=== PATIENT | male | born 1965 | race Caucasian/White ===

== ENCOUNTER 2020-06-04 14:58 | Outpatient (RCR) | payer OTHER, SELFPAY ==
--- NOTE | 2020-06-04 16:48 | PTOPEVAL ---
Thank you for referring Martín Jama to [facility].? The patient is scheduled to be seen for therapy? __3__x/week for 12 visits. Please review, sign, date and return this plan of care ANGELA. I agree with and certify that the following plan of care is medically necessary. Referring Physician Date Admitting Provider: Attending Provider: PHYSICIAN NOT ON STAFF Referring Provider: *PT Outpatient Evaluation Start: 06/04/20 15:07 Freq: Status: Active Protocol: Document 06/04/20 15:08 SUZANNE (Rec: 06/04/20 15:58 SUZANNE [email or web address]) Therapy Assessment Status Assessment Status Assessment Status Evaluation Evaluation Information Problem Diagnosis s/p right tka Onset 05/06/20 Subjective Information Pt. underwent right TKA on 05/06 Query Text:As Reported By Patient/ . He states that he was Family participating in home health, but discharged last week. He reports that pain is consistent 3-/10. He reports that he does wake on occassion due to pain in the right knee. He states that he longer taking pain medication daily, but did take one before treatment. He reports that he is not currently driving. He states that he returns to the doctor in about 2 weeks. He reports that his goal is to return to normal walking. Prior Level of Function Activity Level (Last 3 Months) Occupation retired Hand Dominance Right Activity of Daily Living Ability Independent Indoor/Home Mobility Independent Community Mobility Independent Stairs Ability Independent Functional Cognition (Planning, Shopping Independent , Taking Medications) Cooking Yes Cleaning Yes Laundry Yes Shopping Yes Driving Yes Pain Assessment Pain Scale Pain Scale Used Numeric (1 - 10) Self Report Pain Assessment Right Knee(s) Reported Pain Level 4 Pain Score Pain Score 4: Self Report Lower Extremity Range of Motion General Lower Extremity Range of Motion Gross Lower Extremity Range of Motion 5-110 degrees right knee AROM Comments 0-135 degrees left knee AROM Extremity Circumference Assessment Circumference Assessment Location
--- NOTE | 2020-07-09 11:10 | PTOPEVAL ---
Thank you for referring Martín Jama to [facility]. Please review, sign, date and return this plan of care ANGELA. I agree with and certify that the following plan of care is medically necessary. Referring Physician Date Admitting Provider: Attending Provider: PHYSICIAN NOT ON STAFF Referring Provider: *PT Outpatient Evaluation Start: 06/04/20 15:07 Freq: Status: Active Protocol: Document 07/09/20 10:37 SUZANNE (Rec: 07/09/20 11:09 SUZANNE [email or web address]) Therapy Assessment Status Assessment Status Assessment Status Discharge Evaluation Information Problem Diagnosis s/p right tka Subjective Information Pt. reports that he has Query Text:As Reported By Patient/ returned to driving. He is Family navigating steps and has the most trouble with going down steps. Pain Assessment Pain Scale Pain Scale Used Numeric (1 - 10) Self Report Pain Assessment Right Knee(s) Reported Pain Level 4 Pain Score Pain Score 4: Self Report Interventions Used Interventions Used By Clinicians Activity or ADL's,Exercise Lower Extremity Range of Motion General Lower Extremity Range of Motion Gross Lower Extremity Range of Motion -right knee AROM 3-120 degrees Comments continue to note capsular end feel in knee extension. Lower Extremity Muscle Strength Testing General Lower Extremity Strength Gross Lower Extremity Strength -bilateral hip flexion 5/5 -bilateral knee extension 5/5 -bilateral knee flexion 5/5 -bilateral ankle dorsiflexion 5/5 Edema Assessment Location Right Lateral Knee(s) Edema Comments Pt. presents with small pocket of fluid on the right knee with flexion Gait Assessment Gait Assessment Additional Ambulation Comments Pt. ambulates with equal right and left stance time with noted heel strike on the right . Stair Climbing Assessment Stair Climbing Assessment Stair Climbing Comments Pt. ambulates with reciprical pattern up two flights of stairs with slight difficulty with eccentric quad loading while descending. General Exercise General Exercises Exercise Description -AAROM knee flexion x 10 Query Text:Record Sets, Reps, minutes Resistance, and Position -prone hand x 10 minutes -reviewed pt. HEP and viewed
== END 2020-07-09 13:36 | disposition home or self-care (01) ==
LOC: CHSPT 14:58
PROVIDERS: PCP Internal Medicine
DX: Z96.651 Presence of right artificial knee joint (principal)
CPT/HCPCS: 97014; 97016; 97110; 97161; 97530; G0283

== ENCOUNTER 2020-12-22 07:44 | Outpatient (RCR) | payer OTHER, SELFPAY ==
--- NOTE | 2020-12-22 08:09 | PTOPEVAL ---
Thank you for referring Martín Jama . to [facility].? The patient is scheduled to be seen for therapy? __3__x/week for 12 visits. Please review, sign, date and return this plan of care ANGELA. I agree with and certify that the following plan of care is medically necessary. Referring Physician Date Admitting Provider: Attending Provider: Kandi Gonzalez Referring Provider: *PT Outpatient Evaluation Start: 12/22/20 06:41 Freq: Status: Active Protocol: Document 12/22/20 06:41 SUZANNE (Rec: 12/22/20 07:59 SUZANNE [email or web address]) Therapy Assessment Status Assessment Status Assessment Status Evaluation Evaluation Information Problem Diagnosis right knee pain Onset 05/06/20 Subjective Information Pt. reports following Query Text:As Reported By Patient/ discharge from therapy he Family noted increasing pain on the outside of the right knee. He describes pain with attempting to lift his leg out of the car. He states that pain can begin at the described right buttock and go all the down the entire right leg. He reports that his current pain is localized to the knee joint. He reports that pain in the right knee is constant. He states that he will wake at night due to pain in the knee and right leg. He reports that his goal for therapy is to decrease his right knee pain. Diagnostic Tests X-Rays For This Problem Yes: no signficant finding according to the pt. Prior Level of Function Comments Additional Prior Level of Function He reports that he enjoys Comments yardwork, but has difficulty with cutting grass due to pain . He reports that he uses ice to help reduce pain. Pain Assessment Timing of Pain Assessment Timing of Pain Assessment Pre-Treatment Pain Scale Pain Scale Used Numeric (1 - 10) Self Report Pain Assessment Right Leg(s) Reported Pain Level 4 Pain Description Aching,Throbbing Lowest Pain Intensity 3 Greatest Pain Intensity 8 Pain Aggravating Factors Exercise/Activity,Stair Climbing,Walking,Weight Bearing/Standi
== END 2021-01-15 11:22 | disposition home or self-care (01) ==
LOC: CHSPT 07:44
DX: Z96.651 Presence of right artificial knee joint (principal); M25.561 Pain in right knee
CPT/HCPCS: 97110; 97161; 97530

== ENCOUNTER 2021-09-03 15:21 | Outpatient (CLI) | payer MEDICARE, SELFPAY ==
[2021-09-03 16:47] LABS: Influenza A QL RT-PCR Negative (Negative); Influenza B QL RT-PCR Negative (Negative); SARS-CoV-2 RNA PCR Negative (Negative)
== END 2021-09-03 15:22 | disposition home or self-care (01) ==
LOC: CHSLAB 15:24
PROVIDERS: PCP Internal Medicine; Visit Provider Internal Medicine
DX: J06.9 Acute upper respiratory infection, unspecified (principal); R50.9 Fever, unspecified; Z20.822 Contact with and (suspected) exposure to COVID-19
CPT/HCPCS: 87081; 87502; 87880; C9803; U0003; U0005

== ENCOUNTER 2022-02-10 14:23 | Emergency (ER) | payer MEDICARE, OTHER, SELFPAY ==
--- NOTE | ~2022-02-10 | CT_ITS ---
EXAMINATION: CT lumbar spine wo con DATE: 02/10/2022 15:25 INDICATION: Left-sided low back pain TECHNIQUE: Computed tomography (CT) of the was performed without intravenous contrast. The dose-lengt h product was 1550.57 mGy-cm. COMPARISON: None FINDINGS: Normal lumbar lordosis. There is disc narrowing at L5-S1. Lung bases are unremarkable. Nono bstructing left nephrolithiasis. No acute fracture or traumatic malalignment. Mild osteoarthritis of the hips. IMPRESSION: 1. No acute abnormality of the lumbar spine. 2: Mild lumbar spondylosis. 3: Nonobstructing left nephrolithiasis Reviewed, dictated and finalized at location B.
[2022-02-10 14:30] VITALS: BP 144/99; PULSE 92; RESP 20; TEMP 36.6; O2SAT 97
--- NOTE | 2022-02-10 14:42 | ED.BACK ---
HPI - Back Pain/Injury General Chief Complaint: Back Pain/Injury Stated Complaint: extreme back pain Time Seen by Provider: 02/10/22 14:42 Source: patient Mode of arrival: ambulatory History of Present Illness HPI Narrative: 56-year-old male history chronic neck and pain status post epidural injection cervical region had MRI of the lumbar spine on 05/18/2021 which revealed multilevel lumbar degenerative disc. The patient was noted to multiple level diffuse disc bulging, moderate bilateral facet arthropathy, mild bilateral neuroforaminal stenosis and mild disc bulge spinal canal stenosis. the patient presents to the ER because of severe low back pain radiating to his left thigh. Pain started 2-3 days ago when he stepped off a low step. He does not have any motor or sensory deficits. No bladder or bowel involvement. He called the [facility] who advised him come to the nearest emergency room. MD elicited complaint: back pain Pertinent past history: prior back pain Onset (ago): day(s) ( Started 2 days ago) Timing: constant Severity: mild Similar Symptoms Previously: Yes Quality: aching Location: lumbar spine Radiation: right upper leg Exacerbating factors: movement Relieving factors: immobilization Context: while lifting, turning/twisting and bending Associated symptoms: denies other symptoms Work related injury: No Related Data Allergies Allergy/AdvReac Type Severity Reaction Status Date / Time No Known Allergies Allergy Unverified 02/10/22 14:50 Review of Systems Review of Systems: All systems reviewed & are unremarkable except as noted in HPI and below Constitutional: Constitutional: Reports as per HPI and Reports no additional constitutional complaints Eyes: Eyes: Reports as per HPI and Reports no additional eye complaints ENT: Reports system reviewed and no additional complaints, except as documented and Reports as per HPI Cardiovascular: Cardiovascular: Reports as per HPI and Reports no additional cardiovascular complaints Respiratory: Respiratory: Reports as per HPI and Reports no additional respiratory complaints Gastrointestinal: Gastrointestinal: Reports as per HPI and Reports no additional gastrointestinal complaints Genitourinary: Genitourinary: Reports no additional male genitourinary complaints and Reports as per HPI Musculoskeletal: Musculoskeletal: Reports no additional musculoskeletal complaints, Reports as per HPI and Reports back pain Integumentary/Breasts: Skin/Breast: Reports system reviewed and no additional complaints, except as docu and Reports as per HPI Neurologic: Reports system reviewed and no additional complaints, except as documented and Reports as per HPI Psychiatric: Psychiatric: Reports no additional psychiatric complaints and Reports as per HPI Endocrine: Endocrine: Reports no additional endocrine complaints and Reports as per HPI Hematologic/Lymphatic: Hematologic/Lymphatic: Reports no additional hematologic/lymphatic complaints and Reports as per HPI Allergic/Immunologic: Allergic/Immunologic: Reports no additional allergic/immunologic complaints and Reports as per HPI PMFSH Family History Family History Mother Hypertension Family history of elevated blood lipids Sibling Family history of diabetes mellitus in first degree relative Father Carcinoma of colon Social History Social History Smoking status: Never smoker Alcohol intake: current Exam Const: General: healthy appearing Nutritional Appearance: well nourished Orientation/consciousness: patient oriented x3 Limitations: no limitations HENMT: Head: normal to inspection Ears: external ears normal General nose exam: Normal external nose present Mouth: Yes Normal oral and palatal mucosa present Throat: posterior oropharynx normal Eyes: Conjunctivae: conjunctivae normal Pupils: Equal, round
[2022-02-10] MEDS: HYDROmorphone HCL INJ (*CRX) 2 MG/ML VIAL 0.5 MG IM (15:28)
[2022-02-10] MEDS: ONDANSETRON HCL ODT 4 MG TABLET PO (15:29)
[2022-02-10 15:30] VITALS: BP 140/66; PULSE 80; RESP 16; O2SAT 98
[2022-02-10 16:21] VITALS: BP 151/74; PULSE 82; RESP 18; TEMP 36.2; O2SAT 98
== END 2022-02-10 16:34 | disposition home or self-care (01) ==
PROVIDERS: Emergency Provider Internal Medicine Critical Care Medicine; PCP Internal Medicine
DX: M54.50 Low back pain, unspecified (principal); N20.0 Calculus of kidney
CPT/HCPCS: 72131; 96372; 99284; A9270; J1170

== ENCOUNTER 2022-07-15 10:45 | Outpatient (CLI) | payer MEDICARE, OTHER, SELFPAY ==
--- NOTE | ~2022-07-15 | XR_ITS ---
EXAMINATION: XR chest 2V DATE: 07/15/2022 11:11 INDICATION: Cough and wheezing TECHNIQUE: PA and lateral views of the chest are obtained. COMPARISON: 07/09/2019 FINDINGS: The lungs are free of acute opacities. No pleural effusion or pneumothorax. The cardiomedia stinal silhouette is normal. There are bridging osteophytes at multiple levels in the spine, consiste nt with diffuse idiopathic skeletal hyperostosis (DISH). IMPRESSION: 1. No acute cardiopulmonary abnormality. Reviewed, dictated and finalized at location B. [employer]
[2022-07-15 11:00] LABS: Basophils Absolute Auto 0.03 K/mm3 (0.00-0.10); Basophils Percent Auto 0.7 % (0.0-1.0); Eosinophils Absolute Auto 0.08 K/mm3 (0.02-0.50); Hematocrit 43.8 % (40.0-54.0); Hemoglobin 15.1 g/dL (14.0-18.0); Immature Granulocyte Absolute 0.01 K/mm3 (0.00-0.00); Immature Granulocyte Percent A 0.2 % (0.0-0.0); Lymphocytes Absolute Auto 1.64 K/mm3 (1.10-4.50); Lymphocytes Percent Auto 40.9 % (18.0-42.0); Mean Corpuscular HGB Conc 34.5 g/dL (32.0-36.0); Mean Corpuscular Hemoglobin 32.3 pg (27.0-31.0); Mean Corpuscular Volume 93.6 fL (78.0-102.0); Mean Platelet Volume 8.7 fl (8.7-11.0); Monocytes Absolute Auto 0.34 K/mm3 (0.10-0.90); Monocytes Percent Auto 8.5 % (2.0-11.0); Neutrophils Absolute Auto 1.9 K/mm3 (1.7-7.2); Neutrophils Percent Auto 47.7 % (50.0-70.0); Platelet Count Result 220 K/mm3 (150-420); Red Blood Count 4.68 M/mm3 (4.70-6.10); Red Cell Distribution Width 13.3 % (11.6-14.4)
[2022-07-15 11:41] LABS: Alanine Aminotransferase 36 U/L (16-63); Albumin Level 4.4 g/dL (3.4-5.0); Alkaline Phosphatase 134 U/L (46-116); Anion Gap 8 mmol/L (8-16); Aspartate Amino Transferase 16 U/L (15-37); Bilirubin,Total 0.9 mg/dL (0.00-1.00); Blood Urea Nitrogen 13 mg/dL (7-18); Calcium 9.1 mg/dL (8.5-10.1); Carbon Dioxide 27 mmol/L (21-32); Chloride 109 mmol/L (98-108); Estimated Glomerular Filt Rate 55; Glucose 89 mg/dL (70-99); Osmolality Calculated 297 mOsm/kg (285-295); Potassium 4.2 mmol/L (3.5-5.1); Sodium 144 mmol/L (136-145); Total Protein 7.3 g/dL (6.4-8.2)
== END 2022-07-15 10:46 | disposition home or self-care (01) ==
LOC: CHSLAB 10:49
PROVIDERS: PCP Internal Medicine; Visit Provider Internal Medicine
DX: R05.9 Cough, unspecified (principal); R06.2 Wheezing
CPT/HCPCS: 36415; 71046; 80053; 85025; 87420

== ENCOUNTER 2022-07-15 15:26 | Outpatient (CLI) | payer MEDICARE, OTHER, SELFPAY ==
[2022-07-15 16:00] LABS: RSV Control CHS Valid (Valid)
== END 2022-07-15 15:27 | disposition home or self-care (01) ==
LOC: CHSLAB 15:29
PROVIDERS: PCP Internal Medicine; Visit Provider Internal Medicine
DX: R05.9 Cough, unspecified (principal); J06.9 Acute upper respiratory infection, unspecified
CPT/HCPCS: 87420

== ENCOUNTER 2022-07-25 10:50 | Outpatient (RCR) | payer OTHER, MEDICARE, SELFPAY ==
--- NOTE | 2022-07-25 10:11 | PTOPEVAL1 ---
Assessment and note entered by Chalino Lr Evaluation Information Assessment Status Evaluation Diagnosis lumbar radiculopathy Onset 02/08/22 Subjective Information Pt. reports that he was walking down a step into his garage on 02/08/22 and felt pain that made his left leg give out. He noticed immediate pain shooting down the left leg. He reports that he also noted pain developin in the low back. Shortly after pain increased and he went to the emergency room. He was given pain med that helped to reduce pain. He states that pain returned after completion of the pain meds. He reports that he also had injection around May, which did not reduce his pain. He underwent MRI shortly after that showed some degenrative changes . He reports that his pain levels continue to go up and down. He reports that it is less intense than initial, but still present. he reports that walking and standing increase his pain. He states that pain will wake him from sleep. He reports that his goal is to decrease his pain and improve his walking. Reported Pain Level Pain Score 4: Self Report Assessment PT Clinical Summary Pt. is a 57 year old male who enters the clininc due to developed lumbar radiculopathy. Special testing and objective findings demonstrate consistency with both lumbar pathology and left hip pathology. Pt. may benefit from imaging of the left hip to determine if degenrative changes are present, as well as to better guide treatment. Continued PT is indicated to improve l.e. and lumbar mobility, reduce pain, improve l.e. and core strength and to improve gait mechanics. Plan of Care Interventions Electrical Stimulation,Gait Training,Hot Pack/Cold Pack,Manual Therapy,Mechanical Traction, Therapeutic Activities,Therapeutic Exercise,Self- Care/Home Management PT Services Indicated Yes Treatment Frequency and 2x/week x 10 visits Duration These treatments will address the objective and functional deficits as defined above. The patient will be advanced safely and appropriately in order for the patient to progress towards his/her prior level of function. Additional exercises will be introduced and as well as a comprehensive home exercise program upon discharge, if needed, ?to ensure carryover of functional gains achieved in the clinic. This treatment plan has been reviewed and agreement upon by the patient.
== END 2022-07-25 14:10 | disposition home or self-care (01) ==
LOC: CHSPT 10:50
PROVIDERS: PCP Internal Medicine
DX: M54.16 Radiculopathy, lumbar region (principal)
CPT/HCPCS: 97110; 97161

== ENCOUNTER 2022-08-19 11:49 | Outpatient (CLI) | payer MEDICARE, OTHER, SELFPAY ==
[2022-08-19 12:51] LABS: Anion Gap 8 mmol/L (8-16); Blood Urea Nitrogen 13 mg/dL (7-18); Calcium 9.1 mg/dL (8.5-10.1); Carbon Dioxide 28 mmol/L (21-32); Chloride 104 mmol/L (98-108); Estimated Glomerular Filt Rate > 60; Glucose 77 mg/dL (70-99); Osmolality Calculated 289 mOsm/kg (285-295); Sodium 140 mmol/L (136-145)
== END 2022-08-19 11:50 | disposition home or self-care (01) ==
LOC: CHSLAB 11:53
PROVIDERS: PCP Internal Medicine; Visit Provider Internal Medicine
DX: R79.89 Other specified abnormal findings of blood chemistry (principal)
CPT/HCPCS: 36415; 80048

== ENCOUNTER 2022-12-17 15:01 | Emergency (ER) | payer OTHER, SELFPAY ==
--- NOTE | ~2022-12-17 | XR_ITS ---
EXAMINATION: XR hip LT 2V w AP pelvis DATE: 12/17/2022 15:58 INDICATION: Twisting injury with groin pain 2 weeks post left total hip arthroplasty. TECHNIQUE: Anteroposterior view of the pelvis and anteroposterior and frog-leg lateral views of the l eft hip were obtained. COMPARISON: None. FINDINGS: Noncemented left total hip arthroplasty which appears well seated in near-anatomic alignment. No chacha prosthetic lucency to suggest loosening. No fracture. Mild to moderate osteoarthritis at the right hi p mild bilateral sacroiliac osteoarthritis. Transitional lumbosacral segment. Multiple phyllis and pe lvis. Suture line in the right lower quadrant. IMPRESSION: 1. Expected appearance during left total hip arthroplasty. No acute osseous abnormality. Reviewed, dictated and finalized at location A. IMPRESSION: 1. Expected appearance during left total hip arthroplasty. No acute osseous abn ormality.
[2022-12-17 15:21] VITALS: BP 100/86; PULSE 109; RESP 20; TEMP 36.8; O2SAT 97
--- NOTE | 2022-12-17 15:33 | ED.GENADULT ---
HPI - General Adult General Chief complaint: Extremity Injury, Lower Stated complaint: left hip pain Time Seen by Provider: 12/17/22 15:05 History of Present Illness HPI narrative: The patient is a 57-year-old male who had left hip replacement on 11/28/2022 at the [facility]. This morning, he turned while standing in his bedroom and felt that he twisted his left hip, with a sudden jolt of pain in the left hip. He was able to brace himself and allow the pain to subside, and to 'untwist' his left hip. He did not take his morning pain medicines for 1 hour afterwards to ensure no recurrence of the pain. The pain does go to his left groin region. He is concerned that his left hip may be out of place. He took 2 Vicodin is 1 hour ago. He is able to ambulate. His pain is minimal now. He called the [facility] nursing hotline and they advised him to come to the ER for Xrays. The bruising around the left hip is improving. Related Data Home Medications Medication Instructions Recorded Confirmed amlodipine 5 mg tablet 5 mg PO DAILY 12/17/22 12/17/22 aspirin 81 mg capsule 81 mg PO BID 12/17/22 12/17/22 atorvastatin 80 mg tablet 80 mg PO HS 12/17/22 12/17/22 bupropion HCl 450 mg 24 hr tablet, 450 mg PO DAILY 12/17/22 12/17/22 extended release cholecalciferol (vitamin D3) 1,250 1,250 mcg PO WEEKLY 12/17/22 12/17/22 mcg (50,000 unit) capsule cyclobenzaprine 10 mg tablet 10 mg PO HS PRN Pain 12/17/22 12/17/22 dextroamphetamine-amphetamine 30 30 mg PO DAILY 12/17/22 12/17/22 mg tablet (Adderall) diazepam 10 mg tablet 10 mg PO TID PRN PTSD 12/17/22 12/17/22 hydrocodone 5 mg-acetaminophen 325 1 tablet PO Q4H PRN Pain 12/17/22 12/17/22 mg tablet ondansetron 4 mg disintegrating 4 mg PO Q8H PRN Nausea 12/17/22 12/17/22 tablet pantoprazole 40 mg tablet,delayed 40 mg PO QAM 12/17/22 12/17/22 release polyethylene glycol 3350 17 17 g PO DAILY 12/17/22 12/17/22 gram/dose oral powder psyllium 1 tbsp PO DAILY 12/17/22 12/17/22 semaglutide (weight loss) 0.25 0.25 mg subcut WEEKLY 12/17/22 12/17/22 mg/0.5 mL subcutaneous pen injector sennosides 8.6 mg capsule 8.6 mg PO BID PRN Constipation 12/17/22 12/17/22 tadalafil 20 mg tablet 20 mg PO WEEKLY PRN Erectile 12/17/22 12/17/22 Dysfunction topiramate 25 mg tablet 75 mg PO HS PRN Migraine Headache 12/17/22 12/17/22 tramadol 50 mg tablet 50 mg PO DAILY PRN Pain 12/17/22 12/17/22 trazodone 100 mg tablet 100 mg PO HS 12/17/22 12/17/22 Allergies Allergy/AdvReac Type Severity Reaction Status Date / Time venlafaxine Allergy Unknown Verified 12/17/22 15:26 Review of Systems Review of Systems: All systems reviewed & are unremarkable except as noted in HPI and below Constitutional: Constitutional: Reports as per HPI, Reports no additional constitutional complaints, Denies chills, Denies excessive sweating, Denies fatigue, Denies fever(s), Denies headache(s) and Denies weakness Eyes: Eyes: Reports as per HPI, Reports no additional eye complaints, Denies change in vision and Denies photophobia ENT: Reports system reviewed and no additional complaints, except as documented, Reports as per HPI, Denies dysphagia, Denies vertigo, Denies dizziness, Denies headache(s), Denies lip swelling, Denies nasal congestion, Denies sore throat, Denies throat swelling and Denies tongue swelling Cardiovascular: Cardiovascular: Reports as per HPI, Reports no additional cardiovascular complaints, Denies chest pain, Denies syncope, Denies rapid heart rate and Denies dyspnea Respiratory: Respiratory: Reports as per HPI, Reports no additional respiratory complaints, Denies chest congestion, Denies cough, Denies dyspnea and Denies wheezing Gastrointestinal: Gastrointestinal: Reports as per HPI, Reports no additional gastrointestinal complaints, Denies abdominal pain, Denies constipation, Denies dysphagia, Denies diarrhea, Denies nausea and Denies vomiting Genitourinary: Genitourinary: Reports as per HPI, Denies hematuria,
[2022-12-17 16:33] VITALS: BP 127/95; PULSE 101; RESP 20; TEMP 36.7; O2SAT 98
== END 2022-12-17 16:35 | disposition home or self-care (01) ==
PROVIDERS: Emergency Provider Emergency Medicine; PCP Internal Medicine
DX: Z48.89 Encounter for other specified surgical aftercare (principal); M25.552 Pain in left hip; Z79.82 Long term (current) use of aspirin; Z79.891 Long term (current) use of opiate analgesic; Z96.642 Presence of left artificial hip joint
CPT/HCPCS: 73502; 99283

== ENCOUNTER 2022-12-21 10:18 | Outpatient (RCR) | payer OTHER, SELFPAY ==
--- NOTE | 2022-12-21 11:11 | PTOPEVAL1 ---
Assessment and note entered by Chalino Lr Evaluation Information Assessment Status Evaluation Diagnosis s/p left ANGELICA Onset 11/28/22 Subjective Information Pt. reports that he underwent L ANGELICA on 11/28/22. He reports that he has been doing HH PT, but has been recently discharged. He reports that he is currently using a cane for stability. He reports that he did have an episode that felt like dislocation, but underwent xray and everything was intact. He reports that prior to surgery he did all ADL's without assistance, but did have pain. He states that since surgery pain in the left hip has been less intense. He reports that he is taking Tylenol for pain on occasion. He has returned to short distance driving. He reports that his goal for therapy is to return to walking normally. Reported Pain Level Pain Score 4: Self Report Assessment PT Clinical Summary Pt. is a 57 year old male who enters the clinic 3 weeks post L ANGELICA. He presents with impaired gait, impaired strength, impaired balance and pain. Continued skilled PT is indicated in order to improve these areas to allow the pt. to achieve his goal of normal gait and IADL performance. Plan of Care Interventions Gait Training,Manual Therapy,Neuro Re-education, Patient/Caregiver Educati,Therapeutic Activities, Therapeutic Exercise,Self-Care/Home Management PT Services Indicated Yes Treatment Frequency and 2x/week x 10 visits Duration These treatments will address the objective and functional deficits as defined above. The patient will be advanced safely and appropriately in order for the patient to progress towards his/her prior level of function. Additional exercises will be introduced and as well as a comprehensive home exercise program upon discharge, if needed, ?to ensure carryover of functional gains achieved in the clinic. This treatment plan has been reviewed and agreement upon by the patient.
--- NOTE | 2023-02-01 09:15 | PTOPDC ---
Assessment and note entered by Jamila Perla, PT Evaluation Information Assessment Status Discharge Diagnosis s/p L ANGELICA Onset 11/28/22 Subjective Information Martín Jama reports his left hip is doing well. He is getting back to normal and has returned to performing yard work and squatting. He continues to have mild low back pain that is worse with sitting/driving more than 45 minutes. Reported Pain Level Pain Score 2: Self Report Assessment PT Clinical Summary Martín Jama has completed 10 skilled PT visits following a left total hip arthroplasty. He is reporting minimal left hip pain with return to daily activities. He does get muscle soreness with yard work and activities requiring repetitive squatting. He also continues to have mild low back pain with sitting/driving more than 45 minutes. He objectively demonstrates improved left hip AROM , improved left hip and knee strength, improved gait, and improved balance. He no longer uses an assistive device with gait and his Tinetti balance score indicates a low fall risk. He will be discharged to an independent [facility]. Plan of Care PT Services Indicated No
== END 2023-02-01 10:53 | disposition home or self-care (01) ==
LOC: CHSPT 10:18
DX: M16.12 Unilateral primary osteoarthritis, left hip (principal)
CPT/HCPCS: 97110; 97112; 97150; 97161; 97530; 97750

== ENCOUNTER 2023-04-02 00:19 | Emergency (ER) | payer OTHER, SELFPAY ==
[2023-04-02] VITALS (29 sets, daily range): BP systolic 102–135; BP diastolic 73–109; PULSE 76–94; RESP 10–23; TEMP 36.6; O2SAT 95–100
--- NOTE | ~2023-04-02 | CT_ITS ---
EXAMINATION: CT brain wo con DATE: 04/02/2023 00:46 INDICATION: Syncope TECHNIQUE: Computed tomography (CT) of the head was performed without intravenous contrast. The mA wa s adjusted according to patient size. Iterative reconstruction technique was employed. Exam dose: 60 5.33 mGy-cm total exam DLP. COMPARISON: 12/01/2015 CT brain FINDINGS: Bilateral carotid siphon internal carotid artery calcifications. No intracranial mass lesion or hemorrhage or cerebrovascular accident is detected. No midline shift o r mass effect. Normal ventricular size. No subdural or epidural hematoma. The included mastoid air cells and paranasal sinuses are unremarkable. No fracture or bone destruction of the cranial vault. IMPRESSION: Cerebral atherosclerosis; no acute intracranial finding Reviewed, dictated and finalized at [facility]. Reviewed, dictated and finalized at [facility].
--- NOTE | ~2023-04-02 | XR_ITS ---
XR chest 1V portable DATE: 04/02/2023 01:50 INDICATION: Syncope TECHNIQUE: Portable AP chest on 04/02/2023 0140 hours COMPARISON: 07/15/2022 PA and lateral chest FINDINGS: Normal heart size. No hilar or mediastinal enlargement. No pulmonary infiltrate or consolid ation, pleural effusion or pulmonary vascular congestion or pneumothorax. Diffuse idiopathic skeletal hyperostosis of the thoracic spine. IMPRESSION: No active cardiopulmonary disease DISH of thoracic spine Reviewed, dictated and finalized at [facility].
--- NOTE | 2023-04-02 00:24 | ECG_ITS ---
Measurements Intervals Petty Rate: 79 P: 45 VT: 185 QRS: -69 QRSD: 104 T: 35 QT: 398 QTc: 458 Interpretive Statements SINUS RHYTHM LEFT AXIS DEVIATION LOW QRS VOLTAGE IN LIMB LEADS PATTERN CONSISTENT WITH PULMONARY DISEASE BORDERLINE ECG NO PREVIOUS ECG AVAILABLE FOR COMPARISON Electronically Signed On 04-02-2023 8:58:55 CDT by Shiva Allred D.O.
[2023-04-02 00:26] LABS: Glucose Point of Care 162 mg/dl (65-105)
--- NOTE | 2023-04-02 00:26 | ED.SYNCOPE ---
HPI - Syncope General Chief Complaint: Syncope Stated Complaint: Fall Time Seen by Provider: 04/02/23 00:23 Source: patient and EMS Mode of arrival: EMS Limitations: no limitations History of Present Illness HPI narrative: Patient is a 57-year-old male who presented to the hospital via EMS secondary to passing out at home. Patient had hypoglycemia with a low blood sugar and was given D50 amp with EMS. He is on a new medication for weight loss however it is a diabetic medicine (Wygovy). The new medicine has caused recurrent nausea and vomiting as well as hypoglycemia and dizziness. He was up using the bathroom and had a syncopal episode. MD complaint: loss of consciousness, felt faint and collapsed Onset (ago): minute(s) (30) Duration of episode: 10 -: second(s) Description of event: post-event confusion Prodromal symptoms: nausea/vomiting and vertigo Witnessed: No Context: after urination Injuries sustained associated with event: none Current symptoms: vertigo Treatments prior to arrival: glucose and IV fluids Related Data Home Medications Medication Instructions Recorded Confirmed aspirin 81 mg capsule 81 mg PO BID 12/17/22 04/02/23 atorvastatin 80 mg tablet 80 mg PO HS 12/17/22 04/02/23 bupropion HCl 450 mg 24 hr tablet, 450 mg PO DAILY 12/17/22 04/02/23 extended release cholecalciferol (vitamin D3) 1,250 1,250 mcg PO WEEKLY 12/17/22 04/02/23 mcg (50,000 unit) capsule cyclobenzaprine 10 mg tablet 10 mg PO HS PRN Pain 12/17/22 04/02/23 dextroamphetamine-amphetamine 30 30 mg PO DAILY 12/17/22 04/02/23 mg tablet (Adderall) diazepam 10 mg tablet 10 mg PO TID PRN PTSD 12/17/22 04/02/23 ondansetron 4 mg disintegrating 4 mg PO Q8H PRN Nausea 12/17/22 04/02/23 tablet pantoprazole 40 mg tablet,delayed 40 mg PO QAM 12/17/22 04/02/23 release polyethylene glycol 3350 17 17 g PO DAILY 12/17/22 04/02/23 gram/dose oral powder psyllium 1 tbsp PO DAILY 12/17/22 04/02/23 semaglutide (weight loss) 0.25 1.7 mg subcut WEEKLY 12/17/22 04/02/23 mg/0.5 mL subcutaneous pen injector tadalafil 20 mg tablet 20 mg PO WEEKLY PRN Erectile 12/17/22 04/02/23 Dysfunction topiramate 25 mg tablet 75 mg PO HS PRN Migraine Headache 12/17/22 04/02/23 tramadol 50 mg tablet 50 mg PO DAILY PRN Pain 12/17/22 04/02/23 trazodone 100 mg tablet 100 mg PO HS 12/17/22 04/02/23 losartan 50 mg-hydrochlorothiazide 1 tablet PO DAILY 04/02/23 04/02/23 12.5 mg tablet Allergies Allergy/AdvReac Type Severity Reaction Status Date / Time venlafaxine Allergy Unknown Verified 04/02/23 01:11 Review of Systems Review of Systems: All systems reviewed & are unremarkable except as noted in HPI and below ROS unobtainable: Yes unobtainable due to endotracheal tube Constitutional: Constitutional: Reports no additional constitutional complaints Eyes: Eyes: Reports no additional eye complaints ENT: Reports system reviewed and no additional complaints, except as documented Cardiovascular: Cardiovascular: Reports no additional cardiovascular complaints Respiratory: Respiratory: Reports no additional respiratory complaints Gastrointestinal: Gastrointestinal: Reports no additional gastrointestinal complaints Genitourinary: Genitourinary: Reports no additional male genitourinary complaints Musculoskeletal: Musculoskeletal: Reports no additional musculoskeletal complaints Integumentary/Breasts: Skin/Breast: Reports system reviewed and no additional complaints, except as docu Neurologic: Reports system reviewed and no additional complaints, except as documented Psychiatric: Psychiatric: Reports no additional psychiatric complaints Endocrine: Endocrine: Reports no additional endocrine complaints Hematologic/Lymphatic: Hematologic/Lymphatic: Reports no additional hematologic/lymphatic complaints Allergic/Immunologic: Allergic/Immunologic: Reports no additional allergic/immunologic complaints PENDING SALE TO [facility] Family History Family History (Reviewed
[2023-04-02 01:24] LABS: Basophils Absolute Auto 0.02 K/mm3 (0.00-0.10); Basophils Percent Auto 0.5 % (0.0-1.0); Eosinophils Absolute Auto 0.07 K/mm3 (0.02-0.50); Eosinophils Percent Auto 1.6 % (1.0-6.0); Hematocrit 44.4 % (40.0-54.0); Hemoglobin 15.5 g/dL (14.0-18.0); Immature Granulocyte Absolute 0.03 K/mm3 (0.00-0.00); Immature Granulocyte Percent A 0.7 % (0.0-0.0); Lymphocytes Absolute Auto 1.47 K/mm3 (1.10-4.50); Lymphocytes Percent Auto 34.5 % (18.0-42.0); Mean Corpuscular HGB Conc 34.9 g/dL (32.0-36.0); Mean Corpuscular Hemoglobin 30.9 pg (27.0-31.0); Mean Corpuscular Volume 88.6 fL (78.0-102.0); Mean Platelet Volume 9.1 fl (8.7-11.0); Monocytes Absolute Auto 0.45 K/mm3 (0.10-0.90); Monocytes Percent Auto 10.6 % (2.0-11.0); Neutrophils Absolute Auto 2.2 K/mm3 (1.7-7.2); Neutrophils Percent Auto 52.1 % (50.0-70.0); Platelet Count Result 176 K/mm3 (150-420); Red Blood Count 5.01 M/mm3 (4.70-6.10); Red Cell Distribution Width 13.4 % (11.6-14.4); White Blood Count 4.3 K/mm3 (4.8-10.8)
[2023-04-02 01:36] LABS: Glucose Point of Care 115 mg/dl (65-105)
[2023-04-02 01:46] LABS: Alanine Aminotransferase 39 U/L (16-63); Albumin Level 3.8 g/dL (3.4-5.0); Alkaline Phosphatase 128 U/L (46-116); Anion Gap 14 mmol/L (8-16); Aspartate Amino Transferase 11 U/L (15-37); Bilirubin,Total 0.5 mg/dL (0.00-1.00); Blood Urea Nitrogen 12 mg/dL (7-18); Calcium 8.9 mg/dL (8.5-10.1); Carbon Dioxide 23 mmol/L (21-32); Chloride 104 mmol/L (98-108); Estimated CRCL calculation 52 ml/min; Estimated Glomerular Filt Rate 53; Glucose 76 mg/dL (70-99); Osmolality Calculated 290 mOsm/kg (285-295); Potassium 3.2 mmol/L (3.5-5.1); Sodium 141 mmol/L (136-145); Total Protein 6.9 g/dL (6.4-8.2); Troponin I 4.2 ng/L (0.00-60.4)
[2023-04-02] MEDS: POTASSIUM CHLORIDE 20 MEQ ER TABLET PO (01:56)
[2023-04-02] MEDS: SODIUM CHLORIDE 0.9% IV 1,000 ML 999 ML IV CONT (02:14)
[2023-04-02] MEDS: ONDANSETRON INJ 4 MG/2 ML VIAL IV PUSH (02:17)
[2023-04-02] MEDS: MECLIZINE HCL 25 MG TABLET PO (02:19)
[2023-04-02 03:50] LABS: Appearance Urine Clear (Clear); Bilirubin Urine Negative (Negative); Blood Urine Negative (Negative); Color Urine Light Yellow (Yellow); Glucose Urine UA Trace (Negative); Ketones Urine Negative (Negative); Leukocyte Esterase Ur Negative (Negative); Nitrate Urine Negative (Negative); Protein Urine Negative (Negative); Urobilinogen Urine 0.2 mg/dL (0.2-1.0); pH Urine 6.5 (5.0-8.0)
[2023-04-02 03:52] LABS: Add Urine Microscopic? NO
--- NOTE | 2023-04-02 04:36 | PC.NURSE ---
Remain awaiting CT results. PT aware. Pt and spouse voice no new needs at this time.
== END 2023-04-02 05:25 | disposition home or self-care (01) ==
PROVIDERS: Emergency Provider Emergency Medicine; PCP Internal Medicine
DX: E16.2 Hypoglycemia, unspecified (principal); N18.9 Chronic kidney disease, unspecified; R55 Syncope and collapse; R42 Dizziness and giddiness; R11.2 Nausea with vomiting, unspecified; Z79.82 Long term (current) use of aspirin; Z79.899 Other long term (current) drug therapy
CPT/HCPCS: 36415; 70450; 71045; 80053; 81003; 82948; 84484; 85025; 93005; 96361; 96374; 99284; A9270; J2405; J7030

== ENCOUNTER 2023-04-10 12:05 | Emergency (ER) | payer OTHER, SELFPAY ==
[2023-04-10] VITALS (7 sets, daily range): BP systolic 89–136; BP diastolic 66–98; PULSE 55–83; RESP 12–19; TEMP 36.4; O2SAT 96–100
--- NOTE | ~2023-04-10 | CT_ITS ---
EXAMINATION: CT cervical spine wo con DATE: 04/10/2023 12:43 INDICATION: Neck pain. TECHNIQUE: Computed tomography (CT) of the cervical spine was performed without intravenous contrast. Automated exposure control and iterative reconstruction technique were employed. The dose-length pro duct was 532.68 mGy-cm. COMPARISON: CT cervical spine 07/06/2017 FINDINGS: There is 3 degrees levocurvature of cervical spine. There is mild kyphosis of cervical spin e. Vertebral body heights are normal. There is mildly decreased disc height at C4-C5, moderately decr eased disc height at C5-C6, and mildly decreased disc height at C6-C7. There is soft tissue gas in th e left posterior paraspinal soft tissues. There is injected contrast in this area. There is increased density of the cerebral spinal fluid. Density of material in the interpeduncular cistern and posteri or to the cerebellum is greater than the range of acute hemorrhage and is consistent with contrast. T he following disc levels are specifically discussed: C2-C3: There is no uncovertebral joint osteoarthritis. There is moderate bilateral facet joint osteoa rthritis. There is no neural foraminal stenosis. There is no central canal stenosis. C3-C4: There is mild bilateral uncovertebral joint osteoarthritis. There is moderate facet joint oste oarthritis. There is mild bilateral neural foraminal stenosis. There is no central canal stenosis. C4-C5: There is mild bilateral uncovertebral joint osteoarthritis. There is moderate bilateral facet joint osteoarthritis. There is mild right neural foraminal stenosis. There is mild central canal sten osis. C5-C6: There is severe bilateral uncovertebral joint osteoarthritis. There is mild bilateral facet joellen int osteoarthritis. There is mild bilateral neural foraminal stenosis. There is mild central canal st enosis. C6-C7: There is mild right and moderate left uncovertebral joint osteoarthritis. There is moderate fa cet joint osteoarthritis. There is mild left neural foraminal stenosis. There is mild central canal s tenosis. C7-T1: There is no uncovertebral joint osteoarthritis. There is mild right and moderate left facet joellen int osteoarthritis. There is no neural foraminal stenosis. There is no central canal stenosis. IMPRESSION: 1. Increased density of the cerebral spinal fluid, at least some of which is contrast. Some component of acute hemorrhage may be present. 2. Moderate cervical spondylosis. Reviewed, dictated and finalized at [facility]. IMPRESSION: 1. Increased density of the cerebral spinal fluid, at least some of which is co ntrast. Some component of acute hemorrhage may be present. 2. Moderate cervical spondylosis.
--- NOTE | ~2023-04-10 | CT_ITS ---
EXAMINATION: CT brain wo con DATE: 04/10/2023 12:42 INDICATION: Altered level consciousness. TECHNIQUE: Computed tomography (CT) of the head was performed without intravenous contrast. The mA wa s adjusted according to patient size. Iterative reconstruction technique was employed. The dose-lengt h product was 681.00 mGy-cm. COMPARISON: Head CT 04/02/2023 FINDINGS: There is widespread increased density in the cerebral spinal fluid, worst at the base of th e brain. In most areas, the attenuation is in the range of acute hemorrhage. In some areas (such as t he interpeduncular cistern), the density is greater than the range of acute hemorrhage and suggests c ontrast. There is no acute ischemic infarct or abnormal mass lesion. The ventricles are normal in siz e. There is mild mucosal thickening in the ethmoid sinuses. The orbits are normal. The mastoid air ce lls are normal. IMPRESSION: 1. Large volume of increased density in the cerebral spinal fluid, likely a mixture of hemorrhage and contrast. I called this result to Dr. Martin. Reviewed, dictated and finalized at [facility]. IMPRESSION: 1. Large volume of increased density in the cerebral spinal fluid, likely a mix ture of hemorrhage and contrast. I called this result to Dr. Martin.
[2023-04-10 12:20] LABS: Alveolar/Arterial O2 Gradient 90.8 mmHg; Base Excess ABG -4.6 mEq/l (+/-2.0); Fractional Inspired Oxygen 32 %; HCO3 ABG 19.6 mEq/l (22.0-26.0); Oxygen Content ABG 18.1 %vol (16.0-22.0); Oxygen Saturation ABG 97.4 % (95.0-100.0); Oxyhemoglobin 96.1 % THb (90.0-100.0); PCO2 ABG 33.6 mmHg (35.0-45.0); PO2 ABG 98.1 mmHg (80.0-100.0); PO2 FiO2 Ratio Arterial Blood 3.07 %; Total Hemoglobin 13.3 g/dL (12.0-18.0); pH ABG 7.383 (7.350-7.450)
[2023-04-10 12:21] LABS: Basophils Percent Auto 0.6 % (0.2-1.2); Eosinophils Absolute Auto 0.1 K/mm3 (0-0.3); Eosinophils Percent Auto 2.8 % (0-4.4); Hematocrit 38.8 % (42.0-52.0); Hemoglobin 13.1 g/dL (14.0-18.0); Immature Granulocyte Absolute 0.01 K/mm3 (0.00-0.031); Immature Granulocyte Percent A 0.3 % (0-0.5); Lymphocytes Absolute Auto 1.26 K/mm3 (0.9-3.2); Lymphocytes Percent Auto 38.5 % (18.3-44.2); Mean Corpuscular HGB Conc 33.8 g/dl (32-36); Mean Corpuscular Hemoglobin 30.3 pg (26-34); Mean Corpuscular Volume 89.8 fl (80-100); Mean Platelet Volume 8.7 fl (7.4-10.4); Monocytes Absolute Auto 0.3 K/mm3 (0.1-0.6); Monocytes Percent Auto 9.5 % (2.6-8.5); Neutrophils Absolute Auto 1.6 K/mm3 (1.3-6.7); Neutrophils Percent Auto 48.3 % (45.5-73.1); Platelet Count Result 164 k/mm3 (150-375); Red Blood Count 4.32 M/mm3 (4.6-6.20); Red Cell Distribution Width 13.9 % (11.5-14.5); White Blood Count 3.3 K/mm3 (4.5-10.0)
[2023-04-10] MEDS: SODIUM CHLORIDE 0.9% IV 1,000 ML 999 ML IV CONT ×2 (12:21→12:23)
[2023-04-10 12:22] LABS: Device NASAL CANNULA; Modified Allen's Test Pass; Site Drawn RIGHT RADIAL
--- NOTE | 2023-04-10 12:25 | PC.NURSE ---
Initial fluid bolus started en route per EMS completed on arrival. Second bolus initiated on arrival per EDP at bedside
[2023-04-10 12:31] LABS: Potassium 3.7 mmol/L (3.4-5.0)
[2023-04-10 12:32] LABS: INR 1.1; Prothrombin Time 14.6 Seconds (11.1-14.7)
[2023-04-10 12:33] LABS: Alanine Aminotransferase 29 U/L (6-50); Albumin Level 3.3 g/dL (3.5-5.1); Alkaline Phosphatase 92 U/L (38-126); Anion Gap 4 mmol/L (8-16); Aspartate Amino Transferase 21 U/L (17-59); Bilirubin,Total 0.6 mg/dL (0.2-1.3); Blood Urea Nitrogen 12 mg/dL (9-20); Calcium 8.1 mg/dL (8.4-10.2); Carbon Dioxide 22 mmol/L (22-30); Chloride 108 mmol/L (98-107); Estimated CRCL calculation 75 ml/min; Estimated Glomerular Filt Rate > 60; Glucose 103 mg/dL (65-110); Partial Thromboplastin Time 23.8 SECONDS (22.3-36.8); Sodium 134 mmol/L (137-145)
--- NOTE | 2023-04-10 13:10 | ED.AMS ---
HPI - Altered Mental Status General Chief Complaint: Altered Mental Status Stated Complaint: unresponsive Time Seen by Provider: 04/10/23 12:11 History of Present Illness HPI narrative: Pt had injection of his c7/t1 interspace at outside clinic. Pt felt short of breath and felt like his throat was closing and went unreponsive. Pt had ventilation assisted in route. Pt started answering questions on arrival here. Pt denies numbness or weakness in arms/ Related Data Home Medications Medication Instructions Recorded Confirmed aspirin 81 mg capsule 81 mg PO BID 12/17/22 04/02/23 atorvastatin 80 mg tablet 80 mg PO HS 12/17/22 04/02/23 bupropion HCl 450 mg 24 hr tablet, 450 mg PO DAILY 12/17/22 04/02/23 extended release cholecalciferol (vitamin D3) 1,250 1,250 mcg PO WEEKLY 12/17/22 04/02/23 mcg (50,000 unit) capsule cyclobenzaprine 10 mg tablet 10 mg PO HS PRN Pain 12/17/22 04/02/23 dextroamphetamine-amphetamine 30 30 mg PO DAILY 12/17/22 04/02/23 mg tablet (Adderall) diazepam 10 mg tablet 10 mg PO TID PRN PTSD 12/17/22 04/02/23 ondansetron 4 mg disintegrating 4 mg PO Q8H PRN Nausea 12/17/22 04/02/23 tablet pantoprazole 40 mg tablet,delayed 40 mg PO QAM 12/17/22 04/02/23 release polyethylene glycol 3350 17 17 g PO DAILY 12/17/22 04/02/23 gram/dose oral powder psyllium 1 tbsp PO DAILY 12/17/22 04/02/23 semaglutide (weight loss) 0.25 1.7 mg subcut WEEKLY 12/17/22 04/02/23 mg/0.5 mL subcutaneous pen injector tadalafil 20 mg tablet 20 mg PO WEEKLY PRN Erectile 12/17/22 04/02/23 Dysfunction topiramate 25 mg tablet 75 mg PO HS PRN Migraine Headache 12/17/22 04/02/23 tramadol 50 mg tablet 50 mg PO DAILY PRN Pain 12/17/22 04/02/23 trazodone 100 mg tablet 100 mg PO HS 12/17/22 04/02/23 losartan 50 mg-hydrochlorothiazide 1 tablet PO DAILY 04/02/23 04/02/23 12.5 mg tablet Allergies Allergy/AdvReac Type Severity Reaction Status Date / Time venlafaxine Allergy Unknown Verified 04/02/23 01:11 Review of Systems Review of Systems: All systems reviewed & are unremarkable except as noted in HPI and below PMFSH Family History Family History Mother Hypertension Family history of elevated blood lipids Sibling Family history of diabetes mellitus in first degree relative Father Carcinoma of colon Social History Social History Smoking status: Never smoker Alcohol intake: current Exam Const: General: healthy appearing Limitations: altered mental status HENMT: Head: normal to inspection Eyes: Conjunctivae: conjunctivae normal Pupils: Equal, round and reactive pupils present Neck: Neck: normal visual inspection Resp: Effort & Inspection: normal respiratory effort Auscultation: clear to auscultation bilaterally Cardio: Rate: regular rate Rhythm: regular rhythm GI: GI Palp: Yes Soft to palpation Auscultation: normal bowel sounds Skin: General skin exam: normal color Rashes: no rashes Wounds: no wounds Neuro: General: patient oriented x3, moves all extremities and no focal motor deficits Cranial nerves: Yes Nystagmus not present Speech: normal speech Extrem: General: normal to inspection and no clubbing, cyanosis or edema Course Course Emergency Course: after back from CT patient is awake and alert with non focal neuro exam. Pt has no BRADEN. CT finding consistent with possible SAH. Vital Signs Vital signs: Vital Signs Temperature 97.5 F L 04/10/23 12:00 Pulse Rate 61 04/10/23 12:00 Respiratory Rate 14 04/10/23 12:00 Blood Pressure 96/67 L 04/10/23 12:00 Pulse Oximetry 96 04/10/23 12:00 Oxygen Delivery Nasal Cannula 04/10/23 12:00 Oxygen Flow Rate 3 04/10/23 12:00 Temperature 97.5 F L 04/10/23 12:00 Pulse Rate 83 04/10/23 14:44 Respiratory Rate 15 04/10/23 14:44 Blood Pressure 136/98 H 04/10/23 14:44 Pulse Oximetry 100 04/10/23 1
--- NOTE | 2023-04-10 15:39 | ECG_ITS ---
Measurements Intervals [place] Rate: 59 P: -5 MI: 177 QRS: -24 QRSD: 107 T: 12 QT: 437 QTc: 434 Interpretive Statements SINUS BRADYCARDIA LEFT AXIS DEVIATION [QRS AXIS < -20] BORDERLINE ECG COMPARED TO ECG 04/02/2023 00:30:51 HEART RATE IS REDUCED NO OTHER CHANGE Electronically Signed On 04-11-2023 13:06:08 CDT by Chalino Starr M.D.
== END 2023-04-10 15:53 | disposition short-term general hospital (02) ==
PROVIDERS: Emergency Provider Emergency Medicine; PCP Internal Medicine
DX: I61.9 Nontraumatic intracerebral hemorrhage, unspecified (principal)
CPT/HCPCS: 36415; 36600; 70450; 72125; 80053; 82805; 85025; 85610; 85730; 93005; 96360; 99291; J7030

== ENCOUNTER 2023-04-18 10:59 | Emergency (ER) | payer OTHER, SELFPAY ==
--- NOTE | ~2023-04-18 | CT_ITS ---
EXAMINATION: CT brain wo con INDICATION: Headache COMPARISON: 04/10/2023 TECHNIQUE: Standard unenhanced head CT. The dose-length product (DLP) was 605.33 mGy-cm. The mA was a djusted according to patient size. Iterative reconstruction technique was employed. FINDINGS: There has been interval resolution of previously described cerebral spinal fluid contrast. There is no intracranial hemorrhage, acute infarction, or abnormal mass lesion. The ventricles are no rmal. There is no abnormal mass effect or midline shift. The adam-white matter differentiation is nor mal. The basal cisterns are patent. The orbits are normal. There is mild mucosal thickening of the pa ranasal sinuses. IMPRESSION: 1. No acute intracranial abnormality. Interval resolution of previously described cerebrospinal fluid contrast. Reviewed, dictated and finalized at [facility]. IMPRESSION: 1. No acute intracranial abnormality. Interval resolution of previously describ ed cerebrospinal fluid contrast.
[2023-04-18 10:59] VITALS: BP 142/96; PULSE 94; RESP 18; TEMP 36.2; O2SAT 100
--- NOTE | 2023-04-18 11:12 | ED.HA ---
HPI - Headache General Chief Complaint: Headache Stated Complaint: headache Time Seen by Provider: 04/18/23 11:12 Source: patient and RN notes reviewed Mode of arrival: ambulatory Limitations: no limitations History of Present Illness HPI Narrative: approximately 8 days ago patient had a injection into his cervical spine. He had complication where the injection material penetrated his intrathecal spinal fluid and was therefore surrounding an area of his brain. He had severe headaches. He was transferred to [facility]. He normally goes to the [place]. he called the [place] neurologist because his headache is persistent. It gets a little bit better then gets worse again. Seems to be the whole frontal part of his head and then radiates backwards. He has occasionally some nausea no vomiting. He was told that if his symptoms persisted for more than a week he should have a repeat CT scan. He is here for that CT scan now. MD elicited complaint: headache Pertinent past history: recent trauma Onset (ago): week(s) (1) Onset description: while at rest Location: frontal Severity: moderate Quality & Timing: throbbing and dull Exacerbating factors: none Relieving factors: rest Context: recent spinal/epidural procedure Associated symptoms: nausea Treatments prior to arrival: acetaminophen and prescription analgesic Related Data Home Medications Medication Instructions Recorded Confirmed aspirin 81 mg capsule 81 mg PO BID 12/17/22 04/18/23 atorvastatin 80 mg tablet 80 mg PO HS 12/17/22 04/18/23 bupropion HCl 450 mg 24 hr tablet, 450 mg PO DAILY 12/17/22 04/18/23 extended release cholecalciferol (vitamin D3) 1,250 1,250 mcg PO WEEKLY 12/17/22 04/18/23 mcg (50,000 unit) capsule cyclobenzaprine 10 mg tablet 10 mg PO HS PRN Pain 12/17/22 04/18/23 dextroamphetamine-amphetamine 30 30 mg PO DAILY 12/17/22 04/18/23 mg tablet (Adderall) diazepam 10 mg tablet 10 mg PO TID PRN PTSD 12/17/22 04/18/23 ondansetron 4 mg disintegrating 4 mg PO Q8H PRN Nausea 12/17/22 04/18/23 tablet pantoprazole 40 mg tablet,delayed 40 mg PO QAM 12/17/22 04/18/23 release polyethylene glycol 3350 17 17 g PO DAILY 12/17/22 04/18/23 gram/dose oral powder psyllium 1 tbsp PO DAILY 12/17/22 04/18/23 tadalafil 20 mg tablet 20 mg PO WEEKLY PRN Erectile 12/17/22 04/18/23 Dysfunction topiramate 25 mg tablet 75 mg PO HS PRN Migraine Headache 12/17/22 04/18/23 tramadol 50 mg tablet 50 mg PO DAILY PRN Pain 12/17/22 04/18/23 trazodone 100 mg tablet 100 mg PO HS 12/17/22 04/18/23 losartan 50 mg-hydrochlorothiazide 1 tablet PO DAILY 04/02/23 04/18/23 12.5 mg tablet Allergies Allergy/AdvReac Type Severity Reaction Status Date / Time venlafaxine Allergy Unknown Verified 04/18/23 11:04 Review of Systems Review of Systems: All systems reviewed & are unremarkable except as noted in HPI and below PMFSH Past Medical History Medical History (Updated 04/18/23 @ 12:22 by Skip Chino MD) Chronic low back pain Chronic neck pain Gastroesophageal reflux disease HTN (hypertension), benign CHERRI on CPAP PTSD (post-traumatic stress disorder) Family History Family History Mother Hypertension Family history of elevated blood lipids Sibling Family history of diabetes mellitus in first degree relative Father Carcinoma of colon Social History Social History Smoking status: Never smoker Alcohol intake: current Exam Const: General: healthy appearing, no acute distress and alert Nutritional Appearance: well nourished Orientation/consciousness: patient oriented x3 Limitations: no limitations HENMT: Head: normal to inspection Ears: external ears normal Face/Nose/Sinus: Normal external nose present Face and sinus: normal facial exam Mouth: Yes moist mucous membranes abnormal Eyes: Conjunctivae: conjunctivae normal Pupils: Equal, round a
[2023-04-18] MEDS: KETOROLAC 30 MG/ML VIAL (*BKC) IM (12:34)
[2023-04-18 12:52] VITALS: BP 113/94; PULSE 64; RESP 18; O2SAT 100
== END 2023-04-18 12:50 | disposition home or self-care (01) ==
PROVIDERS: Emergency Provider Emergency Medicine; PCP Internal Medicine
DX: R51.9 Headache, unspecified (principal); I10 Essential (primary) hypertension; Z79.82 Long term (current) use of aspirin; Z79.891 Long term (current) use of opiate analgesic; Z79.899 Other long term (current) drug therapy
CPT/HCPCS: 70450; 96372; 99284; J1885

== ENCOUNTER 2024-12-04 12:23 | Emergency (ER) | payer OTHER, SELFPAY ==
[2024-12-04] VITALS (16 sets, daily range): BP systolic 134–153; BP diastolic 89–96; PULSE 84–90; RESP 11–20; TEMP 36.7–36.9; O2SAT 92–100
--- NOTE | ~2024-12-04 | CT_ITS ---
Non-contrast Head CT History: Left-sided headache COMPARISON: 04/18/2023 Technique: Axial non-contrast imaging of the brain was performed. Dose reduction technique was used on this scan by utilizing automated exposure control and iterative reconstruction technique. The dose -length product (DLP) was 605.33 mGy-cm. Findings: There is no evidence of intracranial hemorrhage, mass lesion, or acute infarct. Brain par enchyma appears normal. The ventricles and subarachnoid spaces are normal in size. The calvarium ap pears normal. The visualized paranasal sinuses and mastoid air cells are clear. Impression: No significant abnormality seen. Reviewed, dictated and finalized at location . Impression: No significant abnormality seen.
--- NOTE | 2024-12-04 12:34 | ED_ITS ---
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 last known well 11:15 a.m. -- Headache which started on the left side of the face and head and progressing towards the midline The patient had similar complaints in 2019 for which she had an MRI which revealed bilateral psis small cerebellar infarcts. No headache or vomiting. No sensory deficit. No speech abnormality. Time: 12:56 Last Observed Normal: 11:15 Location: left face History of same: Yes Severity: mild Quality: tingling Relieving factors: none Exacerbating factors: none Context: sudden onset On Anticoagulants: No Associated symptoms: confusion Related Data Home Medications ?Medication ?Instructions ?Recorded ?Confirmed ?Last Taken ?Type aspirin 81 mg capsule 81 mg PO BID 12/17/22 04/18/23 Unknown History atorvastatin 80 mg tablet 80 mg PO HS 12/17/22 04/18/23 Unknown History bupropion HCl 450 mg 24 hr tablet, 450 mg PO DAILY 12/17/22 04/18/23 Unknown History extended release cholecalciferol (vitamin D3) 1,250 1,250 mcg PO WEEKLY 12/17/22 04/18/23 Unknown History mcg (50,000 unit) capsule cyclobenzaprine 10 mg tablet 10 mg PO HS PRN Pain 12/17/22 04/18/23 Unknown History dextroamphetamine-amphetamine 30 30 mg PO DAILY 12/17/22 04/18/23 Unknown History mg tablet (Adderall) diazepam 10 mg tablet 10 mg PO TID PRN PTSD 12/17/22 04/18/23 Unknown History ondansetron 4 mg disintegrating 4 mg PO Q8H PRN Nausea 12/17/22 04/18/23 Unknown History tablet pantoprazole 40 mg tablet,delayed 40 mg PO QAM 12/17/22 04/18/23 Unknown History release polyethylene glycol 3350 17 17 g PO DAILY 12/17/22 04/18/23 Unknown History gram/dose oral powder psyllium 1 tbsp PO DAILY 12/17/22 04/18/23 Unknown History tadalafil 20 mg tablet 20 mg PO WEEKLY PRN Erectile 12/17/22 04/18/23 2 Days Ago History Dysfunction ~03/31/23 topiramate 25 mg tablet 75 mg PO HS PRN Migraine Headache 12/17/22 04/18/23 Unknown History tramadol 50 mg tablet 50 mg PO DAILY PRN Pain 12/17/22 04/18/23 Unknown History trazodone 100 mg tablet 100 mg PO HS 12/17/22 04/18/23 Unknown History losartan 50 mg-hydrochlorothiazide 1 tablet PO DAILY 04/02/23 04/18/23 Unknown History 12.5 mg tablet Allergies Allergy/AdvReac Type Severity Reaction Status Date / Time venlafaxine Allergy Unknown Verified 12/04/24 12:56 ON LICENSE OF [facility] Past Medical History Medical History PTSD (post-traumatic stress disorder) CHERRI on CPAP HTN (hypertension), benign Gastroesophageal reflux disease Chronic neck pain Chronic low back pain Family History Family History Mother Hypertension Family history of elevated blood lipids Sibling Family history of diabetes mellitus in first degree relative Father Carcinoma of colon Social History Social History Smoking status: Never smoker Alcohol intake: current Exam 2 Narrative: Blood pressure 153/96 Const: General: healthy appearing and no acute distress Nutritional Appearance: well nourished Orientation/consciousness: patient oriented x3 Limitations: no limitations HENMT: Head: normal to inspection Ears: external ears normal F carline/Nose/Sinus: Normal external nose present Face and sinus: normal facial exam Mouth: Yes Normal oral and palatal mucosa present Throat: posterior oropharynx normal Eyes: Conjunctivae: conjunctivae normal Pupils: Equal, round and reactive pupils present EOM: EOMs intact bilaterally Direct Ophthalmoscopy: no photophobia Neck: Neck: normal visual inspection, no lymphadenopathy and no meningeal signs Chest: Chest palpation & inspection: normal inspection of the chest Resp: Effort & Inspection: normal respiratory effort Auscultation: clear to auscultation bilaterally Cardio: Rate: regular rate Rhythm: regular rhythm GI: GI Palp: Yes Soft to palpation Auscultation: normal bowel sounds O ther: no tenderness/ rigidity/ rebound. : General: Yes no CVA tenderness Back/Spine/Pelvis: Back: no CVA tenderness Skin: General skin exam: normal color Rashes: no rashes Wounds: no wounds Neuro: General: patient oriented x3, moves all extremities, no meningeal signs, no focal motor deficits and CN's II-XI intact bilaterally Cranial nerves: Yes Nystagmus not present Speech: normal speech Gait exam (Neuro): Normal gait present Other: NIHSS scored 1. Left leg drift. Extrem: General: normal to inspection and no clubbing, cyanosis or edema Psych: Mental Status: mental status grossly normal Affect: normal affect Attitude: cooperative Course Course Emergency Course: Left facial tingling with left facial / left-sided headache and confusion. The patient had very similar complaints in 2019 for which she had an MRI which revealed bilateral cerebellar infarcts. CT of the head did not show any acute findings. EKG and cardiac stent noted to be negative. Vital Signs Vital signs: Vital Signs Pulse Rate 90 12/04/24 12:23 Respiratory Rate 18 12/04/24 12:23 Blood Pressure 153/96 H 12/04/24 12:23 Pulse Oximetry 94 12/04/24 12:23 Temperature 36.9 C 12/04/24 14:01 Pulse Rate 87 12/04/24 14:01 Respiratory Rate 18 12/04/24 14:01 Blood Pressure 140/90 12/04/24 14:00 Pulse Oximetry 95 12/04/24 14:01 Oxygen Delivery Room Air 12/04/24 14:01 MDM - Neuro Symptoms/Deficit Lab Data 12/04/24 12:48 12/04/24 12:48 Labs: Lab Results 12/04/24 Range/Units 12:48 WBC 3.9 L (4.8-10.8) K/mm3 RBC 4.63 L (4.70-6.10) M/mm3 Hgb 15.4 (14.0-18.0) g/dL Hct 45.1 (40.0-54.0) % MCV 97.4 (78.0-102.0) fL MCH 33.3 H (27.0-31.0) pg MCHC 34.1 (32-36) g/dL RDW 15.8 H (11.6-14.4) % Plt Count 195 (150-420) K/mm3 MPV 8.6 L (8.7-11.0) fl Immature Gran % (Auto) Not Reportable Neut % (Auto) Not Reportable Lymph % (Auto) Not Reportable Weakley % (Auto) Not Reportable Eos % (Auto) Not Reportable Baso % (Auto) Not Reportable Lymph # (Auto) Not Reportable Weakley # (Auto) Not Reportable Eos # (Auto) Not Reportable Baso # (Auto) Not Reportable Abs Immat Gran (auto) Not Reportable Absolute Neuts (auto) Not Reportable Absolute Nucleated RBC Not Reportable Total Counted 100 Neutrophils % (Manual) 59 (46-73) % Band Neutrophils % 0 (0-6) % Lymphocytes % (Manual) 33 (18-44) % Monocytes % (Manual) 8 (3-9) % Nucleated RBC % Not Reportable Abs Neuts (Manual) 2.30 (1.3-6.7) K/mm3 Abs Lymphs (Manual) 1.28 (1.1-4.5) K/mm3 Abs Monocytes (Manual) 0.31 (0.1-0.90) K/mm3 Platelet Estimate Adequate (Adequate) Schistocytes Not Reportable Sodium 138 (136-145) mmol/L Potassium 4.4 (3.5-5.1) mmol/L Chloride 102 (98-108) mmol/L Carbon Dioxide 27 (21-32) mmol/L Anion Gap 9 (4-12) mmol/L BUN 14 (7-18) mg/dL Creatinine 1.25 (0.70-1.30) mg/dL Estim Creat Clear Calc 63 ml/min Estimated GFR 59 (59 - ) Glucose 83 (70-99) mg/dL Calculated Osmolality 285 (285-295) mOsm/kg Calcium 9.3 (8.5-10.1) mg/dL Total Bilirubin 0.7 (0.00-1.00) mg/dL AST 20 (15-37) U/L ALT 38 (16-63) U/L Alkaline Phosphatase 124 H (46-116) U/L Troponin I < 4.0 (0.00-60.4) ng/L NT-Pro-B Natriuret Pep 15 (0-125) pg/mL Total Protein 7.4 (6.4-8.2) g/dL Albumin 4.2 (3.4-5.0) g/dL ECG Data EKG #1: ECG completion date: 12/04/24 ECG completion time: 12:51 Interpretation: normal sinus rhythm. Left axis deviation. No ST /T-wave changes noted. Discharge Plan Discharge Clinical Impression: Anxiety, Left facial numbness Headache Qualifiers: Headache type: unspecified Headache chronicity pattern: acute headache I ntractability: not intractable Qualified Code(s): R51.9 - Headache, unspecified Patient Disposition: Home, Self-Care Condition: Stable Instructions: Antibiotic Form, Anxiety (ED), Stroke Prevention (ED) Patient Language: Swedish Prescriptions: No Action cyclobenzaprine 10 mg Tablet 10 mg PO HS PRN (Reason: Pain) atorvastatin 80 mg Tablet 80 mg PO HS dextroamphetamine-amphetamine [Adderall] 30 mg Tablet 30 mg PO DAILY diazepam 10 mg Tablet 10 mg PO TID PRN (Reason: PTSD) cholecalciferol (vitamin D3) 1,250 mcg (50,000 unit) Capsule 1,250 mcg PO WEEKLY bupropion HCl 450 mg Tablet Extended Release 24 Hr 450 mg PO DAILY aspirin 81 mg Capsule 81 mg PO BID topiramate 25 mg Tablet 75 mg PO HS PRN (Reason: Migraine Headache) tramadol 50 mg Tablet 50 mg PO DAILY PRN (Reason: Pain) Fiber Therapy (psyllium) Powder 1 tbsp PO DAILY Rx Instructions: mix into at least 8 oz of water or juice before administering trazodone 100 mg Tablet 100 mg PO HS pantoprazole 40 mg Tablet,Delayed Release (Dr/Ec) 40 mg PO QAM polyethylene glycol 3350 17 gram/dose Powder 17 g PO DAILY ondansetron 4 mg Tablet,Disintegrating 4 mg PO Q8H PRN (Reason: Nausea) tadalafil 20 mg Tablet 20 mg PO WEEKLY PRN (Reason: Erectile Dysfunction) losartan-hydrochlorothiazide 50-12.5 mg Tablet 1 tablet PO DAILY Follow-up/Referrals: Jaiden Morrison MD [Primary Care Provider] - Time of Disposition: 14:26 Quality Stroke Scale Stroke Scale 1: Stroke scale date:: 12/04/24 Stroke scale time:: 12:40 1a Level of consciousness: alert-0 1b Level of consciousness questions: answers both correctly-0 1c Level of consciousness commands: obeys both correctly-0 2 Best gaze: normal-0 3 Visual: no visual loss-0 4 Facial palsy: normal-0 5a Motor: left arm: no drift-0 5b Motor: right arm: no drift-0 6a Motor: left leg: drift-1 6b Motor: right leg: no drift-0 7 Limb ataxia: absent-0 8 Sensory: normal-0 9 Best language: no aphasia-0 10 Dysarthria: normal-0 11 Extinction and inattention: no abnormality-0 Level:: 1
--- NOTE | 2024-12-04 12:45 | ECG_ITS ---
Test Date: 2024-12-04 12:51:41 Measurements Intervals [place] Rate: 84 P: 57 MT: 180 QRS: -76 QRSD: 101 T: 50 QT: 377 QTc: 448 Interpretive Statements SINUS RHYTHM LEFT AXIS DEVIATION BORDERLINE R WAVE PROGRESSION, ANTERIOR LEADS BORDERLINE ECG No previous ECG available for comparison Electronically Signed On 12-04-2024 12:57:52 CDT by Shiva Allred D.O.
--- NOTE | 2024-12-04 12:49 | PC.NURSE ---
glucose 79 at 12:48
[2024-12-04 12:59] LABS: Hematocrit 45.1 % (40.0-54.0); Hemoglobin 15.4 g/dL (14.0-18.0); Mean Corpuscular HGB Conc 34.1 g/dL (32-36); Mean Corpuscular Hemoglobin 33.3 pg (27.0-31.0); Mean Corpuscular Volume 97.4 fL (78.0-102.0); Mean Platelet Volume 8.6 fl (8.7-11.0); Platelet Count Result 195 K/mm3 (150-420); Red Blood Count 4.63 M/mm3 (4.70-6.10); Red Cell Distribution Width 15.8 % (11.6-14.4); White Blood Count 3.9 K/mm3 (4.8-10.8)
[2024-12-04 13:22] LABS: Alanine Aminotransferase 38 U/L (16-63); Albumin Level 4.2 g/dL (3.4-5.0); Alkaline Phosphatase 124 U/L (46-116); Anion Gap 9 mmol/L (4-12); Aspartate Amino Transferase 20 U/L (15-37); Bilirubin,Total 0.7 mg/dL (0.00-1.00); Blood Urea Nitrogen 14 mg/dL (7-18); Calcium 9.3 mg/dL (8.5-10.1); Carbon Dioxide 27 mmol/L (21-32); Chloride 102 mmol/L (98-108); Estimated CRCL calculation 63 ml/min; Estimated Glomerular Filt Rate 59; Glucose 83 mg/dL (70-99); NT Pro B Type Natriuretic Pept 15 pg/mL (0-125); Osmolality Calculated 285 mOsm/kg (285-295); Potassium 4.4 mmol/L (3.5-5.1); Sodium 138 mmol/L (136-145); Total Protein 7.4 g/dL (6.4-8.2)
[2024-12-04 13:25] LABS: Troponin I < 4.0 ng/L (0.00-60.4)
--- OUTSIDE RECORDS SUMMARY | 2024-12-04 13:39 | XMS_ITS | Encounter Summary ---
Author Organization [facility] Health Address [address] [place] [address] Care Team Providers Care Computer Support Specialist Instructor Name Role Phone Ivone Lynn Primary C are Provider Encounter Details Date Type Department Care Team (Late st Contact Info) Description 04/06/2022 [facility] Outpatient Visit [facility] [address] [place] [address] Ailyn Sotomayor, LOW EMISSION AUTOMOBILE DESIGNER-CLASSER [address] [place] [address] Social History Tobacco Use Types Packs/Day Years Used Date Smoking Tobacco: Never Smokeless Tobacco: Never Sex and Gender Information Value Date Recorded Sex Assigned at Not on file Gender Identity Not on file Sexual Orientation Not on file documented as of this encounter Plan of Treatment Not on file documented as of this encounter Visit Diagnoses Not on filedocumented in this encounter Care Teams Computer Support Specialist Instructor Relationship [facility]ty [facility] [place] [address] [place] [address] PCP - General 04/06/22 documented as of this encounter
--- OUTSIDE RECORDS SUMMARY | 2024-12-04 13:39 | XMS_ITS | Encounter Summary ---
Author Organization [facility] Address [address] [place] [address] Care Team Providers Care Smoking Pipe Liner Name Role Phone Unavailable Primary Care Provider Unavailabl e Encounter Details Date Type Department Care Team (Late st Contact Info) Description 02/09/2019 Abstract [facility] [address] [place] [address] , Generic Conversion, Social History Tobacco Use Types Packs/Day Years Used Date Smoking Tobacco: Never Assessed Sex and Gender Information Value Date Recorded Sex Assigned at Not on file Legal Sex Male 10:51 PM CDT Gender Identity Not on file Sexual Orientation Not on file documented as of this encounter Plan of Treatment Not on file documented as of this encounter Visit Diagnoses Not on filedocumented in this encounter
--- OUTSIDE RECORDS SUMMARY | 2024-12-04 13:39 | XMS_ITS | Clinical Summary ---
Author Organization [facility] Address [address] [address] Phone Care Team Providers Care Gate Person Name Role Phone Unavailable Primary Care Provider Unavailabl e Medications polyethylene glycol (MIRALAX) Powder Use entire 255g bottle with 64oz of clear liquid as directed for colonoscopy prep. 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 Gender Identity Not on file Sexual Orientation Not on file Plan of Treatment Health Maintenance Due Date Last Done Comments Hepatitis C Virus (HCV) Screening 1965 TdaP Immunization 1965 Colonoscopy 2009 Colorectal Cancer Screening 2009 Cologuard 2014 Immunochemical Fecal Occult Blood 2014 Pneumococcal Immunization (5 0+ years) (1 of 1 - PCV) 2014 Zoster Immunization (1 of 2) 2014 PSA Discussion 2019 Influenza Immunization (#1) 2024 SARS-COV-2 Immunization (1 - 2023-25 season) 2024 Respiratory Syncytial Virus (RSV) Immunization (Adult) (1 - 1-dose 75+ series) 2039 Hepatitis B Immunization Aged Out No longer eligible based on patient's age to complete this topic Meningococcal Immunization (ACWY) Aged Out No longer eligible based on patient's age to complete this topic Pneumococcal Immunization Combined Aged Out No longer eligible based on patient's age to complete this topic Rotavirus Immunization Aged Out No lo nger eligible based on patient's age to complete this topic
--- OUTSIDE RECORDS SUMMARY | 2024-12-04 13:39 | XMS_ITS | Clinical Summary ---
Author Organization [facility] Address [address] [place] [address] Care Team Providers Care Airplane Coverer Name Role Phone Ivone Lynn Primary C are Provider Source Comments [facility],non-owned Affiliates and Associated Physician Practices is amultiple site organization consisting of ambulatory clinics and hospital sitesin [place], [place], [place] and [place]. This disclosure is being madepursuant to the Care Everywhere program and may not contain all information available regarding this patient. Last updated 18.[facility] Allergies Active Allergy Reactions Criticality Noted Date Comments Venlafaxine Dizziness 04/06/2022 Medications * Be aware that medications may not be up to date on this document. Alwaysverify current medications with the patient. Medication Sig Dispensed Refills Start Date End Date Status losartan - hydroCHLOROthiazide (HYZAAR) 50-12.5 MG tablet Take 1 (one) tablet by mouth every morning Active diazePAM (VALIUM) 10 MG tablet Take 1 (one) tablet by mouth every 6 hours as needed Active cyclobenzaprine (FLEXERIL) 10 MG tablet Take 1 (one) tablet by mouth 3 times daily as needed Active traZODone (DESYREL) 100 MG tablet Take 1 (one) tablet by mouth at bedtime Active testosterone (ANDROGEL) 20.25 MG/1.25GM (1.62%) gel Apply 1 (one) packet to skin every morning Active tadalafil (CIALIS) 20 MG tablet Take 1 (one) tablet by mouth once daily as needed Active pantoprazole EC (PROTONIX) 40 MG tablet Take 1 (one) tablet by mouth every morning Active methocarbamol (ROBAXIN) 500 MG tablet Take 500 mg by mouth 2 times daily as needed Active lidocaine (LIDODERM) 5 % patch Apply 1 patch to skin once daily Active atorvastatin (LIPITOR) 80 MG tablet Take 80 mg by mouth at bedtime Active aspirin EC (ECOTRIN) 81 MG tablet Take 1 (one) tablet by mouth every morning Active traMADol (ULTRAM) 50 MG tablet Take 1 (one) tablet by mouth every 6 hours Active naloxone HCl (NARCAN) 4 MG/0.1ML nasal spray Chappells 1 spray into the nose as needed Active amphetamine-dextroamphetam ine (Adderall) 30 MG tablet Take 1 (one) tablet by mouth every morning Active gabapentin (Neurontin) 100 MG capsule Take 100 mg by mouth 3 times daily Active buPROPion XL 24hr (Wellbutrin-XL) 150 MG tablet Take 1 (one) tablet by mouth once daily Active PSYLLIUM PO Active POLYETHYLENE GLYCOL 3350 PO Active topiramate (Topamax) 25 MG tablet Take 1 (one) tablet by mouth 2 times daily Active ibuprofen (Motrin) 400 MG tablet Take by mouth every 6 hours as needed Active Active Problems Problem Noted Date Diagnosed Date Confusion 04/10/2023 Altered mental status, unspe cified altered mental status type 04/10/2023 SAH (subarachnoid hemorrhage) 04/10/2023 Lumbar radiculopathy Immunizations Name Administration Dates Next Due ANTHRAX, HISTORIC VACCINE 10/22/2007,08/20/2007 Covid [employer] (Closed) primary monoval ent 12+ yr 0.3mL Purple cap 03/02/2021,02/05/2021 HEP A VACCINE, ADULT 08/17/2004,09/11/2003 HEP B VACCINE, ADULT 3 DOSE 10/14/2006,0 05/14/2006,02/03/2006,2005 INFLUENZA VACCINE 07/09/2019, 8,05/03/2017,2015,06/04/2015,06/18/2014,07/12/2013,1 ,08/04/2011,07/10/2011, 010 INFLUENZA VACCINE, QUADR. (A FLURIA, FLUZONE QUADRIVALENT; 6MO+) (IIV4) 10/14/2006,09/11/2003 INFLUENZA VACCINE, QUADR. (F LUZONE; FLULAVAL; FLUARIX; AFLURIA QUADRIVALENT; 6MO+), 0.5 ML (IIV4) 07/08/2022,07/14/2021,10/15/2020 MENINGOCOCAL MENINGITIS 03/11/2005 MMR 09/11/2003 PNEUMOCOCCAL PCV20 CONJ VAC IM 01/09/2023 POLIO IPV 09/11/2003 SMALLPOX (VACCINIA) VACCINE, LIVE 08/20/2007 TDAP (7yrs+) 10/15/2020,09/04/2007 TYPHOID IM 08/20/2007,03/11/2005 Td (Adult), 2 Lf Tetanus Tox oid, Adsorbed, Pf 09/11/2003 YELLOW FEVER 03/11/2005 Zoster Hzv Vacc Recombinant Inj Im 07/14/2021, Social History Tobacco Use Types Packs/Day Years Used Date Smoking Tobacco: Never Smokeless Tobacco: Never Tobacco Cessation:Counseling Given: Not Answered AUDIT-C Answer Date Recorded Q1: How often do you have a drink containing alcohol? Monthly or less 04/11/2023 Q2: How many drinks containi ng alcohol do you have on a typical day when you are drinking? Patient does not drink Q3: How often do you have si x or more drinks on one occasion? Never 04/11/2023 Overall Financial Resource Strain (CARDIA) Answe r Date Recorded How hard is it for you to pa y for the very basics like food, housing, medical care, and heating? Not hard at all 04/11/2023 [facility] - Occupational Stress Questionnaire Answer Date Recorded Do you feel stress - tense, restless, nervous, or anxious, or unable to sleep at night because your mind is troubled all the time - these days? Not at all 04/11/2023 Hunger Vital Sign Answer Date Recorded Within the past 12 months, y ou worried that your food would run out before you got the money to buy more. Never true 04/11/20 23 Within the past 12 months, t he food you bought just didn't last and you didn't have money to get more. Never true 04/11/2023 PRAPARE - Transportation Answer Date Re corded In the past 12 months, has l ack of transportation kept you from medical appointments or from getting medications? No 04/2023 In the past 12 months, has l ack of transportation kept you from meetings, work, or from getting things needed for daily living? No 04/11/2023 Housing Stability Vital Sign Answer Varun e Recorded In the last 12 months, was t here a time when you were not able to pay the mortgage or rent on time? No 04/11/2023 In the last 12 months, how many places have you lived? 1 04/11/2023 In the last 12 months, was t here a time when you did not have a steady place to sleep or slept in a longterm (including now)? No 04/11/2023 Sex and Gender Information Value Date Recorded Sex Assigned at Not on file Gender Identity Not on file Sexual Orientation Not on file Last Filed Vital Signs Vital Sign Reading Time Taken Comments Blood Pressure 106/72 04/12/2023 7:38 AM CDT Pulse 91 04/12/2023 7:38 AM CDT Temperature 36.9 C (98.5 F) 04/12/2023 7:38 AM CDT Respiratory Rate 18 04/12/2023 7:38 AM CDT Oxygen Saturation 95% 04/12/2023 7:38 AM CDT Inhaled Oxygen Concentration - - Weight 94.8 kg (209 lb) 04/11/2023 12:56 AM CDT Height 175.3 cm (5' 9 ) 04/11/2023 12:56 AM CDT Body Mass Index 30.86 04/11/2023 12:56 AM CDT Plan of Treatment Health Maintenance Due Date Last Done Comments COLOGUARD (AGES 45-75) - COLON CA SCREENING 1964 COLON MONITORING 1964 COLONOSCOPY - COLON CA SCREENING 1964 CT COLONOGRAPHY - COLON CA SCREENING 1964 Colorectal Cancer Screening 1964 FIT - COLON CA SCREENING 1964 FLEX SIG - COLON CA SCREENING 1964 HIV SCREENING 1979 HEPATITIS C SCREENING 05/21/1982 COVID-19 VACCINE ( season) 2024 03/02/2021, 02/05/2021 INFLUENZA VACCINE (#1) 2024 2, 07/14/2021, 10/15/2020, Additional history exists DEPRESSION SCREENING 09/04/2024 SCREENING FOR DIABETES 04/12/2026 , 04/11/2023, 04/10/2023, Additional history exists DTAP/TDAP/TD VACCINES (3 - Td or Tdap) 10/15/2030 10/15/2020, 09/04/2007, 09/11/2003 Respiratory Syncytial Virus (RSV) Vaccine Pt: or over 60 yrs (1 - 1-dose 75+ series) 2039 MENINGOCOCCAL GROUPS A/C/Y/W VACCINE Aged Out 03/11/2005 No longer eligible based on patient's age to complete this topic HEPATITIS B VACCINE Completed 10/14/2006, 05/14/2006, 02/03/2006, Additional history exists ZOSTER VACCINE Completed 07/14/2021, 01/12/2021 PNEUMOCOCCAL VACCINE 50+ Completed 01/09/2023 PNEUMOCOCCAL VACCINE Aged Out 01/09/2023 No long er eligible based on patient's age to complete this topic HIB VACCINE Aged Out No longer eligi ble based on patient's age to complete this topic HPV VACCINE Aged Out No longer eligi ble based on patient's age to complete this topic MENINGOCOCCAL (Group B) VACCINE SHARED DECISION-MAKING Aged Out No longer eligible based on patient's age to complete this topic Procedures Procedure Name Priority Date/Time Associated Diagnosis Comments BASIC METABOLIC PANEL (CALCIUM TOTAL) Routine 04/12/2023 2:52 AM CDT from Last 3 Months or Most Recently Relevant to Health Maintenance Results * (ABNORMAL) BASIC METABOLIC PANEL (CALCIUM TOTAL) (04/12/2023 2:52 AM CDT) BUN 16 7 - 26 mg/dL 04/12/2023 4:35 AM CDT [facility] Creatinine 1.17(H) 0.71 - 1.16 mg/dL 04/12[facility]23 [facility] Sodium 137 136 - 145 mmol/L 04/12/2023 4:35 AM T [facility] Potassium 4.0 3.5 - 4.5 mmol/L 04/12/2023 4:35 AM [facility] Chloride 111(H) 98 - 107 mmol/L 04/12/2023 4:35 AM [facility] CO2 18(L) 22 - 29 mmol/L 04/12/2023 4:35 AM [facility] Glucose 100 70 - 115 mg/dL 04/12/2023 4:35 AM T [facility] Calcium 8.8 8.4 - 10.2 mg/dL 04/12/2023 4:35 AM [facility] Anion Gap 12 8 - 18 04/12/2023 4:35 AM [facility] BUN/Creatinine Ratio 14 7 - 23 04/12/2023 4:35 AM [facility] Osmolality Calculated 285 270 - 300 mOsm/kg 04/12/2023 4:35 AM [facility] eGFR by CKD-EPI 72(L) >=90 mL/min/1.7 3 m2 04/12/2023 4:35 AM [facility] Blood BLOOD SPECIMEN / Unknown Lab Venipuncture / Unknown 04/12/2023 2:52 AM CDT 04/12/2023 4:06 AM T Mohsen Sanchez MD LAB - CHEMISTRY ANGEL [facility] Organization Address City/State/ZIP Co de Phone Number [facility] [address] [place] [address], [facility] [phone] from Last 3 Months or Most Recently Relevant to Health Maintenance Advance Directives * Full Code (Latest Code Status on File) Date Activated Date Inactivated Comments 04/10/2023 10:02 PM 04/12/2023 1:29 PM Care Teams Airplane Coverer Relationship Specialty [facility] [address] [place] [address] PCP - General 04/06/22
--- OUTSIDE RECORDS SUMMARY | 2024-12-04 13:39 | XMS_ITS | Clinical Summary ---
Author Organization [facility] Address [address] [place] [id number] Care Team Providers Care Research Programmer Name Role Phone Unavailable Primary Care Provider Unavailabl e Social History Tobacco Use Types Packs/Day Years Used Date Smoking Tobacco: Never Assessed Sex and Gender Information Value Date Recorded Sex Assigned at Not on file Legal Sex Male 10:51 PM CDT Gender Identity Not on file Sexual Orientation Not on file Last Filed Vital Signs Vital Sign Reading Time Taken Comments Blood Pressure 136/70 12/03/2015 1:36 PM CDT Pulse 92 12/03/2015 1:36 PM CDT Temperature - - Respiratory Rate - - Oxygen Saturation - - Inhaled Oxygen Concentration - - Weight - - Height - - Body Mass Index - - Plan of Treatment Health Maintenance Due Date Last Done Comments Colorectal Cancer Screening Colonoscopy (10 Years) 1964 Annual Physical 1967 Hepatitis C 1982 DTaP, Tdap and Td Vaccines ( 1 - Tdap) 1983 Zoster Vaccines (1 of 2) 2014 COVID-19 Vaccine ( - 2023-2 5 season) 2024 Influenza Adult (#1) 2024 RSV Immunization or 60+ Years (1 - 1-dose 75+ series) 2039 Meningococcal B Vaccine Aged Out No l onger eligible based on patient's age to complete this topic Meningococcal Vaccine Aged Out No irving ciarra eligible based on patient's age to complete this topic Pneumococcal Vaccine: Pediat rics (0 to 5 Years) and At-Risk Patients (6 to 64 Years) Aged Out No longer eligible b ased on patient's age to complete this topic RSV Immunizations Under 20 Months Aged Out No longer eligible based on patient's age to complete this topic
[2024-12-04 13:40] LABS: Band Neutrophils Percent 0 % (0-6); Lymphocytes Absolute Manual 1.28 K/mm3 (1.1-4.5); Lymphocytes Percent Manual 33 % (18-44); Monocytes Absolute Manual 0.31 K/mm3 (0.1-0.90); Monocytes Percent Manual 8 % (3-9); Neutrophils Percent Manual 59 % (46-73); Platelet Estimate Adequate (Adequate); Total Cells Counted 100
[2024-12-04] MEDS: HYDROmorphone HCL INJ (*CRX) 2 MG/ML VIAL 0.5 MG IM (14:02)
[2024-12-04] MEDS: ONDANSETRON HCL ODT 4 MG TABLET PO (14:04)
--- OUTSIDE RECORDS SUMMARY | 2024-12-04 14:43 | XMS_ITS | Encounter Summary ---
Author Organization [facility] Address [address] [place] [address] Care Team Providers Care Bender Machine Name Role Phone Unavailable Primary Care Provider Unavailabl e Encounter Details Date Type Department Care Team (Late st Contact Info) Description 02/09/2019 Abstract [facility] CON[facility] [address] [place] [address] , Generic Conversion, Social History Tobacco Use [...]
--- OUTSIDE RECORDS SUMMARY | 2024-12-04 14:43 | XMS_ITS | Encounter Summary ---
Author Organization [facility] Address [address] [place] [address] Care Team Providers Care Egg Grader Name Role Phone Ivone Lynn Primary C are Provider Encounter Details Date Type Department Care Team (Late st Contact Info) Description 04/06/2022 [facility] Outpatient Visit [facility] [address] [place] [address] Ailyn Sotomayor, BATCHING OPERATOR-MICROPALEONTOLOGIST [address] [facility] [place] [address] Social History Tobacco Use Types Packs/Day Years [...] on filedocumented in this encounter Care Teams Egg Grader Relationship Specialty Start Date End [facility] [place] [address] [place] [address] PCP - General 04/06/22 documented as of this encounter
--- OUTSIDE RECORDS SUMMARY | 2024-12-04 14:43 | XMS_ITS | Clinical Summary ---
Author Organization [facility] Address [address] [place] [id number] Care Team Providers Care Passenger Attendant Name Role Phone Unavailable Primary Care Provider [...]
--- OUTSIDE RECORDS SUMMARY | 2024-12-04 14:43 | XMS_ITS | Clinical Summary ---
Author Organization [facility] Address [address] [facility] [place] [address] Care Team Providers Care Recreation Aide Name Role Phone Ivone Lynn Primary C are Provider Source Comments [facility],non-owned Affiliates and Associated Physician Practices is amultiple site organization consisting of ambulatory clinics and hospital sitesin [place], [place], [place] and [place]. This disclosure is being madepursuant to the Care Everywhere program and may not contain all information available regarding this patient. Last updated 18.[facility] Allergies Active Allergy Reactions Criticality Noted Date [...] naloxone HCl (NARCAN) 4 MG/0.1ML nasal spray [place] 1 spray into the nose as needed [...] Next Due ANTHRAX, HISTORIC VACCINE 10/22/2007,08/20/2007 Covid [employer] primary monoval ent 12+ yr 0.3mL Purple [...] and heating? Not hard at all 04/11/2023 [facility] - Occupational [...] place to sleep or slept in a nursing home (including now)? No 04/11/2023 Sex and Gender [...] - 26 mg/dL 04/12/2023 4:35 AM CDT [facility] Creatinine 1.17(H) 0.71 - 1.16 mg/dL 04/12[facility]23 [facility] Sodium 137 136 - 145 mmol/L 04/12/2023 4:35 AM T [facility] Potassium 4.0 3.5 - 4.5 mmol/L 04/12/2023 4:35 AM [facility] Chloride 111(H) 98 - 107 mmol/L 04/12/2023 4:35 AM [facility] CO2 18(L) 22 - 29 mmol/L 04/12/2023 4:35 AM [facility] Glucose 100 70 - 115 mg/dL 04/12/2023 4:35 AM T [facility] Calcium 8.8 8.4 - 10.2 mg/dL 04/12/2023 [...] Sanchez MD LAB - CHEMISTRY ANGEL MCC[facility] Organization Address City/State/ZIP Co de Phone Number [facility] [address] [place] [address], [facility] [phone] from Last 3 Months or Most Recently Relevant to Health Maintenance Advance Directives * Full Code (Latest Code Status on File) Date Activated Date Inactivated Comments 04/10/2023 10:02 PM 04/12/2023 1:29 PM Care Teams Recreation Aide Relationship Specialty Start Date End [facility] [address] [place] [address] PCP - General 04/06/22
--- OUTSIDE RECORDS SUMMARY | 2024-12-04 14:43 | XMS_ITS | Clinical Summary ---
Author Organization [facility] Address [address] [address] Phone Care Team Providers Care Hourly Manager Name Role Phone Unavailable Primary Care Provider [...] on file Legal Sex Male 3:30 AM SLOT FLOOR ATTENDANT Gender Identity Not on file Sexual Orientation [...]
[2024-12-05 00:05] LABS: Glucose Point of Care 79 mg/dl (65-105)
== END 2024-12-04 14:48 | disposition home or self-care (01) ==
PROVIDERS: Emergency Provider Internal Medicine Critical Care Medicine; PCP Internal Medicine
DX: F41.9 Anxiety disorder, unspecified (principal); R20.0 Anesthesia of skin; R51.9 Headache, unspecified; I10 Essential (primary) hypertension; E78.5 Hyperlipidemia, unspecified
CPT/HCPCS: 36415; 70450; 80053; 82948; 83880; 84484; 85025; 93005; 96372; 99284; A9270; J1171